=== PATIENT | male | born 1970 | race Caucasian/White ===

== ENCOUNTER 2018-11-04 12:41 | Emergency (ER) | payer MEDICAID ==
[~2018-11-04] VITALS: Ht 185.4 cm; Wt 99.8 kg
[2018-11-04] MEDS ORDERED: HYDROXYZINE HCL25 MG PO (13:17)
[2018-11-04] MEDS ORDERED: NORVASC5 MG PO (13:17)
[2018-11-04] MEDS ORDERED: LITHIUM CARBON150 MG PO (13:18)
[2018-11-04] MEDS ORDERED: ZITHROMAX1 GM PO (13:38)
[2018-11-04] MEDS ORDERED: LITHIUM CARBON300 M1 PO (13:38)
[2018-11-04] MEDS ORDERED: VENTOLIN HFA18 GM INH (13:38)
[2018-11-04] MEDS ORDERED: ELIMITE60 GM TOP (13:38)
--- OUTSIDE RECORDS SUMMARY | 2018-11-04 15:20 | XMS ---
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 aKty VISIT COUNT ([address] [facility] [place] [facility] TOTAL 3 NOTE: Visits indicate total known visits. ED/UCC VISIT TRACKING (12 MO.) 11/04/2018 12:[address] [facility] TYPE: Emergency COMPLAINT: - MEDICATION REFILL 10/27/2018 23:36 [facility] TYPE: Emergency DIAGNOSES: 0. HPYERTENSION 06/15/2018 12:47 [facility] [place] TYPE: Emergency DIAGNOSES: - shortness of breath - Dyspnea, unspecified - Essential (primary) hypertension INPATIENT VISIT TRACKING (12 MO.) No inpatient visits to display in this time frame [email or web address]
== END 2018-11-04 13:54 | disposition home or self-care (01) ==
LOC: ED 12:41
DX: F31.9 Bipolar disorder, unspecified (principal); F41.9 Anxiety disorder, unspecified; J40 Bronchitis, not specified as acute or chronic; Z79.899 Other long term (current) drug therapy
CPT/HCPCS: 99283

== ENCOUNTER 2019-04-03 19:22 | Emergency (ER) | payer MEDICAID ==
[~2019-04-03] VITALS: Ht 185.4 cm; Wt 99.8 kg
[~2019-04-03 19:22] MED LIST: ELIMITE60 GM TOP; HYDROXYZINE HCL25 MG PO; LITHIUM CARBON150 MG PO; LITHIUM CARBON300 M1 PO; NORVASC5 MG PO; VENTOLIN HFA18 GM INH; ZITHROMAX1 GM PO
--- OUTSIDE RECORDS SUMMARY | 2019-04-03 19:24 | XMS ---
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 [place] VISIT COUNT (12 MO.) 1 [facility] [place] 1 [facility] [facility] 2 [facility] 1 [place] [place] T[place] 7 NOTE: Visits indicate total known visits. ED/UCC VISIT TRACKING (12 MO.) 04/03/2019 19:23 [facility] TYPE: Emergency COMPLAINT: - SKIN ISSUE 04/01/2019 20:32 [facility] [place] TYPE: Emergency DIAGNOSES: - Skin Irritation 11/30/2018 18:08 [facility] [place] [facility] TYPE: Emergency DIAGNOSES: 0. RASH 11/17/2018 23:24 [facility] TYPE: Emergency DIAGNOSES: - Skin is Itching - Other stimulant abuse, uncomplicated - Itching - Pruritus, unspecified 11/04/2018 12:[address] [facility] TYPE: Emergency COMPLAINT: - MEDICATION REFILL DIAGNOSES: - Encounter for issue of repeat prescription - Bipolar disorder, unspecified - Anxiety disorder, unspecified - Other manager terminal (current) drug therapy - Bronchitis, not specified as acute or chronic 10/27/2018 23:36 [facility] TYPE: Emergency DIAGNOSES: 0. HPYERTENSION 06/15/2018 12:47 [facility] [place] TYPE: Emergency DIAGNOSES: - shortness of breath - Dyspnea, unspecified - Essential (primary) hypertension INPATIENT VISIT TRACKING (12 MO.) No inpatient visits to display in this time frame [email or web address]
[2019-04-03] MEDS ORDERED: ELIMITE60 GM TOP (20:23)
== END 2019-04-03 20:45 | disposition home or self-care (01) ==
LOC: ED 19:22
DX: B86 Scabies (principal); I10 Essential (primary) hypertension; Z79.899 Other long term (current) drug therapy
CPT/HCPCS: 99281